=== PATIENT | female | born 1985 | race Caucasian/White ===

== ENCOUNTER 2016-09-17 10:23 | Emergency (ER) | payer OTHER ==
[~2016-09-17] VITALS: Ht 157.5 cm; Wt 102.0 kg
[~2016-09-17 10:23] MED LIST: 8 HOUR PAIN RE650 MG PO; BACTRIM,SEPT1 TABLET PO; BENADRYL ALLERG25 MG PO; DULCOLAX5 MG PO; MOTRIN; NOHOMEMEDS; PERCOCET 5/31 TABLET PO; PRENATAL PLUS1 EAC3 PO; TRAMADOL HCL50 MG PO; TYLENOL; VIBRAMYCIN100 MG PO
[2016-09-17] MEDS ORDERED: FLONASE16 G1 BOTH NARES (13:09)
[2016-09-17] MEDS ORDERED: MUCUS ER600 MG PO (13:09)
[2016-09-17 13:14] VITALS: BP 113/80
== END 2016-09-17 13:15 | disposition home or self-care (01) ==
LOC: EME 10:23
DX: J02.8 Acute pharyngitis due to other specified organisms (principal); J30.2 Other seasonal allergic rhinitis; R59.0 Localized enlarged lymph nodes; F17.200 Nicotine dependence, unspecified, uncomplicated; Z91.040 Latex allergy status; Z88.6 Allergy status to analgesic agent; Z88.2 Allergy status to sulfonamides; Z88.5 Allergy status to narcotic agent
CPT/HCPCS: 87651 90; 99281; 99283

== ENCOUNTER 2017-09-24 11:27 | Emergency (ER) | payer OTHER ==
[~2017-09-24] VITALS: Ht 160 cm; Wt 93.9 kg
[~2017-09-24 11:27] MED LIST changes: +FLONASE16 G1 BOTH NARES; +MUCUS ER600 MG PO
[2017-09-24 13:28] VITALS: BP 111/75
== END 2017-09-24 13:29 | disposition home or self-care (01) ==
LOC: EME 11:27
DX: L02.31 Cutaneous abscess of buttock (principal); L73.2 Hidradenitis suppurativa; K21.9 Gastro-esophageal reflux disease without esophagitis; Z88.2 Allergy status to sulfonamides; Z91.040 Latex allergy status; Z88.6 Allergy status to analgesic agent; Z88.5 Allergy status to narcotic agent; F17.200 Nicotine dependence, unspecified, uncomplicated
CPT/HCPCS: 99281; 99283

== ENCOUNTER 2017-10-30 11:10 | Emergency (ER) | payer OTHER ==
[~2017-10-30] VITALS: Ht 160 cm; Wt 90.7 kg
[2017-10-30 11:54] LABS: HEMOGLOBIN 13.8 G/DL (11.9-15.5); MCH 30.9 PG (29.0-34.0); MCHC 33.7 G/DL (30.0-36.0); MCV 91.7 FL (83-99); PLATELET COUNT 237 K/uL (156-360); RBC DIS.WIDTH-CV 13.4 % (11.8-14.6); RBC DIS.WIDTH-SD 45.2 % (39-53); RED BLOOD COUNT 4.47 M/uL (3.80-5.20); WHITE BLOOD COUNT 12.1 K/uL (4.1-10.2)
[2017-10-30 11:58] LABS: APPEARANCE CLEAR ((CLEAR)); BILIRUBIN NEGATIVE; BLOOD NEGATIVE; COLOR YELLOW ((YELLOW)); GLUCOSE (STRIP) NEGATIVE; KETONES NEGATIVE; LEUKOCYTES NEGATIVE; NITRITE NEGATIVE; PROTEIN (STRIP) NEGATIVE; SPECIFIC GRAVITY 1.013 (1.000-1.030); UCUL ADDED? NO; UROBILINOGEN 0.2 MG/DL (0.2-1.0)
[2017-10-30 12:07] LABS: CHLORIDE 105 mEq/L (99-109); POTASSIUM 4.6 mEq/L (3.7-5.4); SODIUM 140 mEq/L (136-147)
[2017-10-30 12:08] LABS: GLUCOSE 85 mg/dL (70-99)
[2017-10-30 12:12] LABS: CREATININE 0.8 mg/dL (0.6-1.3); GFR ESTIMATE (CALCULATED) > 59 mL/min/
[2017-10-30 12:13] LABS: UREA NITROGEN (BUN) 8 mg/dL (9-23)
[2017-10-30 13:05] LABS: ALBUMIN 4.2 g/dL (3.2-4.8)
[2017-10-30 13:08] LABS: TOTAL PROTEIN 7.3 g/dL (6.4-8.3)
[2017-10-30 13:10] LABS: TOTAL BILIRUBIN 0.4 mg/dL (0.0-1.0)
[2017-10-30 13:11] LABS: ALKALINE PHOSPHATASE 105 IU/L (3-129)
[2017-10-30 13:13] LABS: AST (GOT) 18 IU/L (2-34); DIRECT BILIRUBIN 0.2 mg/dL (0.0-0.3)
[2017-10-30 13:14] LABS: ALT (GPT) 13 IU/L (3-49)
[2017-10-30 13:19] LABS: QUANTITATIVE HCG < 4.0 MIU/ML
[2017-10-30 15:14] VITALS: BP 110/64
== END 2017-10-30 15:12 | disposition home or self-care (01) ==
LOC: EXP 11:10 → EME 11:10 → EXP 15:12
DX: R10.32 Left lower quadrant pain (principal); K21.9 Gastro-esophageal reflux disease without esophagitis; F17.200 Nicotine dependence, unspecified, uncomplicated; Z87.440 Personal history of urinary (tract) infections; Z91.040 Latex allergy status; Z88.2 Allergy status to sulfonamides; Z88.5 Allergy status to narcotic agent; Z88.8 Allergy status to other drugs, medicaments and biological substances
CPT/HCPCS: 74177; 80048; 80076; 81003; 84702; 85027; J1885; J7030